=== PATIENT | male | born 1955 | race Caucasian/White ===

== ENCOUNTER 2020-10-28 01:23 | Day surgery (SDC) | payer OTHER, SELFPAY ==
[2020-10-14 14:39] VITALS: BMI 33.0
[2020-10-28 06:19] VITALS: BP 154/80; PULSE 60; RESP 18; TEMP 36.5; O2SAT 99
[2020-10-28] MEDS: LACTATED RINGERS 1,000 ML 150 ML IV CONT (06:28)
--- NOTE | 2020-10-28 06:48 | WPDANESEPPF ---
Anes - Initial Pre Proc Eval Procedure: Operation Date: 10/28/20 07:30 Proposed Procedures p Screening Colonoscopy - John Tillman MD Date/Time: 10/28/20 06:48 Surgeon: John Tillman MD Pre Op Diagnosis: neoplasm screening Patient Data Age: 65 Gender: M Height: 1.78 m Weight: 105.5 kg Last Vital Signs Temp 36.5 C 10/28/20 06:19 Pulse 60 10/28/20 06:19 Resp 18 10/28/20 06:19 BP 154/80 H 10/28/20 06:19 Pulse Ox 99 10/28/20 06:19 Allergies Allergy/AdvReac Type Severity Reaction Status Date / Time No Known Allergies Allergy Verified 10/28/20 06:16 Home Medications Medication Instructions Recorded Confirmed Type clotrimazole-betamethasone 1 1 applic TOPICAL BID 02/26/19 10/14/20 History %-0.05 % topical cream fluticasone propionate 50 2 spray NASAL DAILY 02/26/19 10/14/20 History mcg/actuation nasal spray,suspension lactobacillus combination no.9 4 4,000 mmu cells PO DAILY 02/26/19 10/14/20 History billion cell capsule multivitamin 1 tablet PO DAILY 02/26/19 10/14/20 History psyllium husk 0.4 gram capsule 0.4 gm PO DAILY 02/26/19 10/12/20 History triamcinolone acetonide 0.5 % 1 applic TOPICAL BID #15 gm 02/27/19 10/14/20 Rx topical cream hydrocortisone 2.5 % topical cream 1 applic RECTAL BID PRN #30 gm 04/22/19 10/14/20 Rx with perineal applicator zolpidem 5 mg tablet 5 mg PO .hs PRN #30 tablet 04/22/19 10/14/20 Rx duloxetine 20 mg capsule,delayed 20 mg PO DAILY cap 01/20/20 10/14/20 History release prednisone 10 mg tablet See Rx Instructions PO DAILY #45 01/20/20 10/14/20 Rx tablet rivaroxaban 20 mg tablet 20 mg PO QPM #30 tablet 09/12/20 10/28/20 Rx Patient hx anesthesia problems: none Family hx anesthesia problems: none PMFSH Past Medical History Medical History Essential (primary) hypertension Hx of deep venous thrombosis Obesity (BMI 30-39.9) Other hyperlipidemia Family History Family History Father Family history of lung cancer Family history of congestive heart failure Patient's father is Mother Family history of diabetes mellitus in first degree relative Diabetes mellitus Family history of cardiovascular disease Family history of Alzheimer's disease Sibling Family history of diabetes mellitus in first degree relative Family history of atrial fibrillation Other Family history of arthritis Family history of malignant neoplasm Hypertension Social History Social History Smoking status: Never smoker Second hand tobacco smoke exposure: No Alcohol intake: current Substance use type: does not use Living arrangements: with family Gender identity (if verbalized by the patient): Male Anes - Eval Final PreProcedure Day of Procedure 10/28/20 06:48 Patient weight: obese Heart: regular rate and rhythm Lungs: clear to auscultation Airway: Mallampati scale class II Neurological: alert and oriented Last oral intake: >/= 8 hours ASA classification: III Emergent: no Anesthetic plan: proceed Anesthesia type and monitoring: general GIVS and standard monitoring Informed Consent: The patient's anesthetic plan and its attendant risks and benefits were discussed with the patient/family/POA. Questions were solicited and answers provided to the satisfaction of the patient/family/POA.
--- NOTE | 2020-10-28 07:15 | PM.HPGS ---
History of Present Illness History of Present Illness Consent: Risks, benefits, and alternatives have been discussed and questions answered. Patient agrees to proceed with procedure. Chief complaint: neoplasm screening Narrative: Dennis Maciel is a 65 year old male Referred for colon cancer screening. His last colonoscopy was 10 years ago Review of Systems Review of Systems: All systems reviewed & are unremarkable except as noted in HPI and below PMFSH Past Medical History Medical History Essential (primary) hypertension Hx of deep venous thrombosis Obesity (BMI 30-39.9) Other hyperlipidemia Family History Family History Father Family history of lung cancer Family history of congestive heart failure Patient's father is Mother Family history of diabetes mellitus in first degree relative Diabetes mellitus Family history of cardiovascular disease Family history of Alzheimer's disease Sibling Family history of diabetes mellitus in first degree relative Family history of atrial fibrillation Other Family history of arthritis Family history of malignant neoplasm Hypertension Social History Social History Smoking status: Never smoker Second hand tobacco smoke exposure: No Alcohol intake: current Substance use type: does not use Living arrangements: with family Gender identity (if verbalized by the patient): Male Meds Home Medications and Allergies Home Medications Medication Instructions Recorded Confirmed Type clotrimazole-betamethasone 1 1 applic TOPICAL BID 02/26/19 10/14/20 History %-0.05 % topical cream fluticasone propionate 50 2 spray NASAL DAILY 02/26/19 10/14/20 History mcg/actuation nasal spray,suspension lactobacillus combination no.9 4 4,000 mmu cells PO DAILY 02/26/19 10/14/20 History billion cell capsule multivitamin 1 tablet PO DAILY 02/26/19 10/14/20 History psyllium husk 0.4 gram capsule 0.4 gm PO DAILY 02/26/19 10/12/20 History triamcinolone acetonide 0.5 % 1 applic TOPICAL BID #15 gm 02/27/19 10/14/20 Rx topical cream hydrocortisone 2.5 % topical cream 1 applic RECTAL BID PRN #30 gm 04/22/19 10/14/20 Rx with perineal applicator zolpidem 5 mg tablet 5 mg PO .hs PRN #30 tablet 04/22/19 10/14/20 Rx duloxetine 20 mg capsule,delayed 20 mg PO DAILY cap 01/20/20 10/14/20 History release prednisone 10 mg tablet See Rx Instructions PO DAILY #45 01/20/20 10/14/20 Rx tablet rivaroxaban 20 mg tablet 20 mg PO QPM #30 tablet 09/12/20 10/28/20 Rx Allergies Allergy/AdvReac Type Severity Reaction Status Date / Time No Known Allergies Allergy Verified 10/28/20 06:16 Vital Signs Vital Signs - 24 hr 10/28/20 06:19 Temperature 36.5 C Pulse Rate 60 Respiratory Rate 18 Blood Pressure 154/80 H Pulse Oximetry 99 Exam Resp: Auscultation: clear to auscultation bilaterally Cardio: Rate: regular rate Rhythm: regular rhythm GI: GI Palp: Yes Soft to palpation and No Tenderness to palpation present (GI) Assessment and Plan Assessment and plan (1) Colon cancer screening: Code(s): Z12.11 - Encounter for screening for malignant neoplasm of colon Status: Acute Assessment and Plan: Colonoscopy with possible biopsy or polypectomy or cautery or injection of substances.
[2020-10-28 07:48] VITALS: BP 127/73; PULSE 80; RESP 19; O2SAT 99
[2020-10-28 07:58] VITALS: BP 127/62; PULSE 62; RESP 24; O2SAT 99
[2020-10-28 08:08] VITALS: BP 129/65; PULSE 56; RESP 22; O2SAT 100
== END 2020-10-28 08:23 | disposition home or self-care (01) ==
PROVIDERS: PCP Internal Medicine; Visit Provider Internal Medicine Gastroenterology
PROC: 0DJD8ZZ Inspection of Lower Intestinal Tract, Via Natural or Artificial Opening Endoscopic (ICD-10-PCS; CPT 45378; principal; 2020-10-28 07:30)
DX: Z12.11 Encounter for screening for malignant neoplasm of colon (principal); K57.30 Diverticulosis of large intestine without perforation or abscess without bleeding; I10 Essential (primary) hypertension; E78.5 Hyperlipidemia, unspecified; Z86.718 Personal history of other venous thrombosis and embolism; Z79.01 Long term (current) use of anticoagulants; E66.9 Obesity, unspecified; Z68.33 Body mass index [BMI] 33.0-33.9, adult
CPT/HCPCS: 45378; J2001; J2704; J7120

== ENCOUNTER 2022-01-18 09:58 | Emergency (ER) | payer OTHER, SELFPAY ==
--- NOTE | ~2022-01-18 | CT_ITS ---
EXAMINATION: CT abdomen pelvis w con INDICATION: Epigastric pain and nausea TECHNIQUE: Computed tomographic images of the abdomen and pelvis were obtained after the administrati on of 100 cc of Omnipaque 350 intravenous contrast. The dose-length product (DLP) was 1398.03 mGy-cm. Automated exposure control and iterative reconstruction technique were employed. COMPARISON: None available FINDINGS: Minimal dependent atelectasis is present in the lung bases. The heart size is normal. The l iver, spleen, pancreas, gallbladder, and adrenal glands are normal. The kidneys are unremarkable. No pathologically enlarged abdominal or pelvic lymph nodes are identified. There is no free intraperiton eal gas or evidence of bowel obstruction. The appendix is normal. Colonic diverticulosis is present w ithout evidence of diverticulitis. There is a diverticulum of the right posterolateral bladder wall. There is moderate lumbar spondylosis. There is moderate osteoarthritis of the right hip. IMPRESSION: 1. No CT correlate for the patient's symptoms. Reviewed, dictated and finalized at location A.
[2022-01-18 10:19] VITALS: BP 153/80; PULSE 83; RESP 20; TEMP 36.8; O2SAT 96
--- NOTE | 2022-01-18 10:26 | ECG_ITS ---
Measurements Intervals [place] Rate: 73 P: 50 MN: 150 QRS: -1 QRSD: 89 T: 55 QT: 363 QTc: 402 Interpretive Statements SINUS RHYTHM MINIMAL VOLTAGE CRITERIA FOR LVH, CONSIDER NORMAL VARIANT [MEETS CRITERIA IN ONE OF: R(aVL), S(V1), R(V5), R(V5/V6)+S(V1)] BASELINE ARTIFACT IS PRESENT NO PREVIOUS ECG AVAILABLE FOR COMPARISON Electronically Signed On 01-18-2022 15:25:42 CDT by Marlena Walton M.D.
--- NOTE | 2022-01-18 10:43 | ED.ABDPAIN ---
HPI - Abdominal Pain General Chief Complaint: Abdominal Pain Stated Complaint: abd pain, vomiting Time Seen by Provider: 01/18/22 10:14 Source: patient and family Mode of arrival: ambulatory Limitations: no limitations History of Present Illness HPI narrative: Patient presents complaints of epigastric pain with belching and overall dyspepsia. States symptoms started 2 to 3 days ago and have not resolved with Pepto-Bismol or Gas-X. Patient denies fever but has had persistent nausea with 1 episode of vomiting. Reports after taking Pepto-Bismol stools turned black later in the evening. States pain is more of an ache and is only a 2 or 3 out of 10 but has not resolved. Denies other problems or complaints at this time. Related Data Home Medications Medication Instructions Recorded Confirmed fluticasone propionate 50 2 spray intranasal DAILY 02/26/19 11/02/21 mcg/actuation nasal spray,suspension (Flonase Allergy Relief) lactobacillus combination no.9 4 4,000 mmu cells PO DAILY 02/26/19 11/02/21 billion cell capsule (Adult 50 Plus Probiotic) psyllium husk 0.4 gram capsule 0.4 gm PO DAILY 02/26/19 11/02/21 (Fiber (psyllium husk)) duloxetine 20 mg capsule,delayed 20 mg PO DAILY 01/20/20 11/02/21 release (Cymbalta) loratadine 10 mg tablet (Claritin) 10 mg PO DAILY 01/25/21 11/02/21 Allergies Allergy/AdvReac Type Severity Reaction Status Date / Time No Known Allergies Allergy Verified 11/02/21 11:03 Review of Systems Review of Systems: CONSTITUTIONAL: Denies fever, chills, or sweats. EYES: Denies visual changes, redness, or discharge. ENT: Denies rhinorrhea, congestion, sore throat, or otalgia. CARDIOVASCULAR: Denies chest pain, palpitations, or edema. RESPIRATORY: Denies cough or dyspnea. GASTROINTESTINAL: Epigastric abdominal pain with nausea and one episode vomiting, denies diarrhea. GENITOURINARY: Denies dysuria or hematuria. SKIN: Denies rash or itching. MUSCULOSKELETAL: Denies back pain, joint pain, or myalgia. NEUROLOGIC: Denies headache, numbness, or weakness. PSYCHIATRIC: Denies anxiety or depression. All systems reviewed & are unremarkable except as noted in HPI and below PMFSH Past Medical History Medical History Essential (primary) hypertension Hx of deep venous thrombosis Other hyperlipidemia Family History Family History Father Family history of lung cancer Family history of congestive heart failure Patient's father is Mother Family history of diabetes mellitus in first degree relative Diabetes mellitus Family history of cardiovascular disease Family history of Alzheimer's disease Sibling Family history of diabetes mellitus in first degree relative Family history of atrial fibrillation Other Family history of arthritis Family history of malignant neoplasm Hypertension Social History Social History Smoking status: Never smoker Second hand tobacco smoke exposure: No Alcohol intake: current Substance use type: does not use Gender identity (if verbalized by the patient): Male Exam Narrative: GENERAL: Well-appearing, well-nourished, and in no acute distress. HEAD: Normocephalic, atraumatic. EYES: PERRLA and EOMI. ENT: Nares clear, no rhinorrhea or epistaxis. Mucous membranes moist. NECK: Supple. CHEST: Clear to auscultation. No respiratory distress. HEART: Regular rate and rhythm. No murmur heard. Normal peripheral pulses. ABDOMEN: Soft, mild tenderness to palpation epigastric area, nondistended, normal active bowel sounds. EXTREMITIES: Normal range of motion. No edema. SKIN: Warm, dry, no rash. NEURO: No focal deficits. Alert and oriented x3. PSYCH: Normal mood and affect. Course Vital Signs Vital signs: Vital Signs Temperature 36.8 C 01/18/22 10:19 Pulse Rate 83
[2022-01-18 10:45] LABS: Basophils Percent Auto 0.3 % (0.2-1.2); Eosinophils Absolute Auto 0.1 K/mm3 (0-0.3); Eosinophils Percent Auto 2.1 % (0-4.4); Hematocrit 45.1 % (42.0-52.0); Hemoglobin 14.9 g/dL (14.0-18.0); Immature Granulocyte Absolute 0.03 K/mm3 (0.00-0.031); Immature Granulocyte Percent A 0.4 % (0-0.5); Lymphocytes Absolute Auto 0.67 K/mm3 (0.9-3.2); Lymphocytes Percent Auto 9.9 % (18.3-44.2); Mean Corpuscular Hemoglobin 29.3 pg (26-34); Mean Corpuscular Volume 88.6 fl (80-100); Mean Platelet Volume 10.8 fl (7.4-10.4); Monocytes Absolute Auto 0.6 K/mm3 (0.1-0.6); Monocytes Percent Auto 9.2 % (2.6-8.5); Neutrophils Absolute Auto 5.3 K/mm3 (1.3-6.7); Neutrophils Percent Auto 78.1 % (45.5-73.1); Platelet Count Result 177 k/mm3 (150-375); Red Blood Count 5.09 M/mm3 (4.6-6.20); Red Cell Distribution Width 13.4 % (11.5-14.5); White Blood Count 6.7 K/mm3 (4.5-10.0)
[2022-01-18] MEDS: ONDANSETRON INJ 4 MG/2 ML VIAL IV PUSH (10:49)
[2022-01-18 10:55] LABS: Appearance Urine Clear (Clear); Bilirubin Urine Negative (Negative); Blood Urine Negative (Negative); Color Urine Yellow (Yellow); Glucose Urine UA Negative (Negative); Ketones Urine Negative (Negative); Leukocyte Esterase Ur Negative LEU/UL (Negative); Nitrate Urine Negative (Negative); Protein Urine Negative (Negative); Specific Grav Ur >= 1.030 (1.001-1.035); Urobilinogen Urine 0.2 mg/dL (<2.0); pH Urine 5.5 (5.0-9.0)
[2022-01-18 11:00] LABS: Alanine Aminotransferase 26 U/L (6-50); Albumin Level 4.3 g/dL (3.5-5.1); Alkaline Phosphatase 86 U/L (38-126); Anion Gap 13 mmol/L (8-16); Aspartate Amino Transferase 24 U/L (17-59); Bilirubin,Total 0.6 mg/dL (0.2-1.3); Blood Urea Nitrogen 13 mg/dL (9-20); Calcium 8.8 mg/dL (8.4-10.2); Carbon Dioxide 24 mmol/L (22-30); Chloride 102 mmol/L (98-107); Estimated CRCL calculation 88 ml/min; Estimated Glomerular Filt Rate > 60; Glucose 139 mg/dL (65-110); Lipase 62 U/L (23-300); Sodium 139 mmol/L (137-145)
[2022-01-18 11:12] LABS: Troponin I < 0.012 ng/mL (0.000-0.034)
[2022-01-18 11:21] LABS: Mucus Urine Rare /lpf
[2022-01-18 11:29] LABS: Add Urine Microscopic? NO
[2022-01-18 12:42] VITALS: BP 140/79; PULSE 73; RESP 16; O2SAT 97
== END 2022-01-18 12:43 | disposition home or self-care (01) ==
PROVIDERS: General Practice; Emergency Provider Nurse Practitioner; PCP Internal Medicine
DX: K21.9 Gastro-esophageal reflux disease without esophagitis (principal); I10 Essential (primary) hypertension; Z86.718 Personal history of other venous thrombosis and embolism; E78.49 Other hyperlipidemia
CPT/HCPCS: 36415; 74177; 80053; 81003; 83690; 84484; 85025; 86850; 86900; 86901; 93005; 96374; 99284; J2405; Q9967

== ENCOUNTER 2022-06-26 08:22 | Outpatient (CLI) | payer MEDICARE, SELFPAY ==
--- NOTE | ~2022-06-26 | XR_ITS ---
EXAMINATION: XR lg joint inject/asp w image DATE: 06/26/2022 09:23 INDICATION: Right hip arthritis with pain TECHNIQUE: A time-out was performed to verify the patient's name, date of , and procedure to b e performed. The procedure including the risks, benefits, and alternatives was discussed with the pat ient. Risks discussed included bleeding and infection. The patient understood the risks and agreed to proceed. The skin overlying the right hip joint was prepped and draped in usual sterile fashion. A nesthetic was administered with 1% lidocaine subcutaneously. A 22 G needle was advanced under fluoro scopic guidance into the joint. Injection of 1 mL of Omnipaque 240 confirmed intra-articular positio n of the needle. Subsequently, injectate consisting of 3 mL of a 2:1 mixture of 0.5% Marcaine: 80 mg /mL Depo-Medrol for a total dosage of 80 mg Depo-Medrol was instilled. Washout of contrast was seen c onfirming intra-articular administration. The needle was removed and the entry site was cleaned and d ressed. There were no immediate complications. Fluoroscopy exposure time was 0.1 minutes. The total number of images was 2. FINDINGS: Real-time fluoroscopy demonstrates the needle in the right hip joint. Patient's pain prior to procedure:2/10. Patient's pain following the procedure: 0/10. IMPRESSION: 1. Successful right hip joint injection of local anesthetic and steroid with decrease in the patient' s presenting pain. Reviewed, dictated and finalized at location A. IMPRESSION: 1. Successful right hip joint injection of local anesthetic and steroid with de crease in the patient's presenting pain.
== END 2022-06-26 08:23 | disposition home or self-care (01) ==
PROVIDERS: PCP Internal Medicine; Visit Provider Orthopaedic Surgery
DX: M16.11 Unilateral primary osteoarthritis, right hip (principal)
CPT/HCPCS: 20610; 77002; J1040; Q9966

== ENCOUNTER 2022-11-02 12:59 | Outpatient (CLI) | payer MEDICARE, SELFPAY ==
--- NOTE | ~2022-11-02 | XR_ITS ---
EXAMINATION: XR lg joint inject/asp w image DATE: 11/02/2022 14:05 INDICATION: Right hip arthritis with pain TECHNIQUE: A time-out was performed to verify the patient's name, date of , and procedure to b e performed. The procedure including the risks, benefits, and alternatives was discussed with the pat ient. Risks discussed included bleeding and infection. The patient understood the risks and agreed to proceed. The skin overlying the right hip joint was prepped and draped in usual sterile fashion. A nesthetic was administered with 1% lidocaine subcutaneously. A 22 G needle was advanced under fluoro scopic guidance into the joint. Injection of 1 mL of Omnipaque 240 confirmed intra-articular positio n of the needle. Subsequently, injectate consisting of 3 mL of a 2:1 mixture of 0.5% Marcaine: 80 mg /mL Depo-Medrol for a total dosage of 80 mg Depo-Medrol was instilled. Washout of contrast was seen c onfirming intra-articular administration. The needle was removed and the entry site was cleaned and d ressed. There were no immediate complications. Fluoroscopy exposure time was 0.1 minutes. The total number of images was 2. FINDINGS: Real-time fluoroscopy demonstrates the needle in the right hip joint. Patient's pain prior to procedure:4/10. Patient's pain following the procedure: 0/10. IMPRESSION: 1. Successful right hip joint injection of local anesthetic and steroid with decrease in the patient' s presenting pain. Reviewed, dictated and finalized at location A. IMPRESSION: 1. Successful right hip joint injection of local anesthetic and steroid with de crease in the patient's presenting pain.
== END 2022-11-02 13:00 | disposition home or self-care (01) ==
LOC: ANHIMG 13:05
PROVIDERS: PCP Internal Medicine; Visit Provider Orthopaedic Surgery
DX: M16.11 Unilateral primary osteoarthritis, right hip (principal)
CPT/HCPCS: 20610; 77002; J1040; Q9966

== ENCOUNTER 2023-01-22 15:14 | Outpatient (CLI) | payer MEDICARE, SELFPAY ==
[2023-01-22 15:36] LABS: Basophils Absolute Auto 0.1 K/mm3 (0.0-0.1); Basophils Percent Auto 1.5 % (0.2-1.2); Eosinophils Absolute Auto 0.3 K/mm3 (0-0.3); Eosinophils Percent Auto 4.5 % (0-4.4); Hematocrit 42.3 % (42.0-52.0); Hemoglobin 14.1 g/dL (14.0-18.0); Immature Granulocyte Absolute 0.04 K/mm3 (0.00-0.031); Immature Granulocyte Percent A 0.6 % (0-0.5); Lymphocytes Absolute Auto 1.59 K/mm3 (0.9-3.2); Lymphocytes Percent Auto 22.2 % (18.3-44.2); Mean Corpuscular HGB Conc 33.3 g/dl (32-36); Mean Corpuscular Hemoglobin 29.4 pg (26-34); Mean Corpuscular Volume 88.3 fl (80-100); Mean Platelet Volume 10.7 fl (7.4-10.4); Monocytes Absolute Auto 0.7 K/mm3 (0.1-0.6); Monocytes Percent Auto 9.8 % (2.6-8.5); Neutrophils Absolute Auto 4.4 K/mm3 (1.3-6.7); Neutrophils Percent Auto 61.4 % (45.5-73.1); Platelet Count Result 200 k/mm3 (150-375); Red Blood Count 4.79 M/mm3 (4.6-6.20); Red Cell Distribution Width 13.2 % (11.5-14.5); White Blood Count 7.2 K/mm3 (4.5-10.0)
[2023-01-22 15:42] LABS: Anion Gap 4 mmol/L (8-16); Blood Urea Nitrogen 16 mg/dL (9-20); Calcium 8.7 mg/dL (8.4-10.2); Carbon Dioxide 28 mmol/L (22-30); Chloride 104 mmol/L (98-107); Estimated Glomerular Filt Rate > 60; Glucose 99 mg/dL (65-110); Potassium 4.4 mmol/L (3.4-5.0); Sodium 136 mmol/L (137-145)
--- NOTE | 2023-01-22 15:45 | ECG_ITS ---
Measurements Intervals [place] Rate: 68 P: 62 AL: 151 QRS: -4 QRSD: 96 T: 45 QT: 393 QTc: 420 Interpretive Statements SINUS RHYTHM WITH OCCASIONAL SUPRAVENTRICULAR PREMATURE COMPLEXES BORDERLINE ECG COMPARED TO ECG 01/18/2022 10:52:01 NO SIGNIFICANT CHANGES Electronically Signed On 01-22-2023 17:28:54 CDT by Jaime Cornelius M.D.
[2023-01-22 16:15] LABS: Appearance Urine Clear (Clear); Bacteria Urine None Seen /hpf; Bilirubin Urine Negative (Negative); Blood Urine Negative (Negative); Color Urine Yellow (Yellow); Glucose Urine UA Negative (Negative); Ketones Urine Negative (Negative); Leukocyte Esterase Ur Trace LEU/UL (Negative); Nitrate Urine Negative (Negative); Non Pathogenic Casts 0-2; Protein Urine Negative (Negative); RBC Urine 0-2 /hpf (0-2); Squamous Epithelial Cell Urine None seen /hpf (Few); Urobilinogen Urine 0.2 mg/dL (<2.0); WBC Urine 0-5 /hpf
[2023-01-22 16:53] LABS: Add Urine Microscopic? YES
== END 2023-01-22 15:15 | disposition home or self-care (01) ==
PROVIDERS: PCP Internal Medicine; Visit Provider Orthopaedic Surgery
DX: M16.11 Unilateral primary osteoarthritis, right hip (principal); R53.83 Other fatigue; I10 Essential (primary) hypertension; R93.1 Abnormal findings on diagnostic imaging of heart and coronary circulation
CPT/HCPCS: 36415; 80048; 81001; 85025; 93005

== ENCOUNTER 2023-02-20 10:06 | Outpatient (CLI) | payer MEDICARE, SELFPAY ==
[2023-02-20 11:54] LABS: Appearance Urine Clear (Clear); Bilirubin Urine Negative (Negative); Blood Urine Negative (Negative); Color Urine Yellow (Yellow); Glucose Urine UA Negative (Negative); Ketones Urine Negative (Negative); Leukocyte Esterase Ur Negative LEU/UL (Negative); Nitrate Urine Negative (Negative); Protein Urine Negative (Negative); Specific Grav Ur 1.018 (1.001-1.035); Urobilinogen Urine 0.2 mg/dL (<2.0); pH Urine 5.5 (5.0-9.0)
[2023-02-20 12:00] LABS: Add Urine Microscopic? NO
[2023-02-20 12:01] LABS: Albumin Level 4.5 g/dL (3.5-5.1)
[2023-02-20 12:03] LABS: Hemoglobin A1C 5.7 % (<5.7)
[2023-02-20 12:07] LABS: INR 2.1
[2023-02-20 12:08] LABS: Partial Thromboplastin Time 52.9 SECONDS (22.3-36.8)
[2023-02-20 12:09] LABS: Urine Cotinine NEGATIVE
== END 2023-02-20 10:07 | disposition home or self-care (01) ==
LOC: ANHSURGERY 10:10
PROVIDERS: PCP Internal Medicine; Visit Provider Orthopaedic Surgery
DX: Z01.818 Encounter for other preprocedural examination (principal); M16.11 Unilateral primary osteoarthritis, right hip
CPT/HCPCS: 80307; 81003; 82040; 83036; 85610; 85730; 87081

== ENCOUNTER 2023-03-06 02:13 | Day surgery (SDC) | payer MEDICARE, SELFPAY ==
[2023-02-20 10:17] VITALS: BMI 35.7
--- NOTE | 2023-02-20 10:49 | PC.NURSE ---
Report to the Outpatient Waiting Room, entrance under the green pavilion located off [facility], at time __0600 on date __03/06/23 . Planned Procedure Time: __30 . Time changes happen often and if your time is changed the preop area will call you the afternoon before. - You and your visitor will be asked to self-screen and do not enter if you have any COVID symptoms. - A mask is optional within the hospital at this time. Patients may have clear liquids (water, carbonated beverages, clear teas, apple juice) until 3 hours prior to surgery with a maximum of 20 ounces. - No food from midnight until time of surgery - Infants may have breast milk until 4 hours before surgery, formula 6 hours prior to surgery. - Children will be allowed to drink immediately following surgery. If applicable, please bring a bottle or sippy cup to assist with drinking. Juice, water, soda, and popsicles are readily available. For infants on formula, please bring formula the day of surgery. Pacifiers are allowed. Take the following medications with a SIP of water the morning of surgery: ____DULOXETINE,SYMBICORT IF NEEDED DO NOT STOP ANY OF YOUR OTHER PRESCRIPTION MEDICATIONS PRIOR TO SURGERY ?EXCEPT THE FOLLOWING Medications to discontinue per physician _PT STATES HOLD XARELTO 7 DAYS PRE OP PER DR SANDRA . LAST DOSE 02/26/23 HOLD PROBIOTIC 3 DAYS PRE OP .LAST DOSE 03/02/23 Please no make-up, nail swedish, hairspray, perfume, deodorant, or body powder the day of surgery. No jewelry (including any body piercings) or valuables the day of surgery, leave them at home. Please take a shower or bath the night before, or the morning of, surgery with an antibacterial soap. Wear comfortable, loose fitting clothing. Children are encouraged to wear pajamas. - Jewelry must be removed prior to entering the operating room. Rings and piercings that are not removed may be cut off. - The hospital will not accept responsibility for valuables. - Please leave all valuables, including medications, at home the day of surgery. If you are going home after surgery, a licensed school bus driver must drive you home. - NO public transportation without another adult if you receive anesthesia. - We recommend that an adult stay with you for 24 hours following discharge. - We also recommend that you do not drive, make important decision, drink alcoholic beverages, or take any drugs that were not prescribed by your health care provider for at least 24 hours after your discharge time. For Pediatric surgeries, we recommend two adults accompany the child home. Follow any additional instructions given to you from your surgeon. If you or anyone in your household have experienced Covid symptoms in the past week, please notify your surgeon or the nurse liaison at the phone number below for possible testing. VERBAL AND WRITTEN instructions given to __PATIENT and asked if any additional questions and then verbalized understanding. Patient advised to call surgeon office or pre surgery nurse liaison [phone] if any additional questions.
[2023-02-20 11:07] VITALS: BP 162/88; PULSE 72; RESP 18; TEMP 36.9; O2SAT 98
--- NOTE | 2023-03-05 14:58 | WPDANESEPPF ---
Anes - Initial Pre Proc Eval Procedure: Operation Date: 03/06/23 07:30 Proposed Procedures p Right Total Hip Arthroplasty - Isiah Aguillon MD Date/Time: 03/05/23 14:58 Surgeon: Isiah Aguillon MD Pre Op Diagnosis: right hip djd Patient Data Age: 68 Gender: M Height: 1.78 m Weight: 113 kg Last Vital Signs Temp 36.9 C 02/20/23 11:07 Pulse 72 02/20/23 11:07 Resp 18 02/20/23 11:07 BP 162/88 H 02/20/23 11:07 Pulse Ox 98 02/20/23 11:07 O2 Del Method Room Air 02/20/23 11:07 Allergies Allergy/AdvReac Type Severity Reaction Status Date / Time magnesium AdvReac Gastrointestinal Verified 02/26/23 14:02 Upset Home Medications Medication Instructions Recorded Confirmed Type fluticasone propionate 50 2 spray intranasal PRN PRN Allergy 02/26/19 02/20/23 History mcg/actuation nasal Symptoms spray,suspension (Flonase Allergy Relief) lactobacillus combination no.9 4 4,000 mmu cells PO DAILY 02/26/19 02/20/23 History billion cell capsule (Adult 50 Plus Probiotic) psyllium husk 0.4 gram capsule 0.4 gm PO DAILY 02/26/19 02/20/23 History (Fiber (psyllium husk)) loratadine 10 mg tablet (Claritin) 10 mg PO DAILY 01/25/21 02/20/23 History acetaminophen [Tylenol Arthritis 2 tab-cap PO PRN PRN Pain 06/16/22 02/20/23 History Pain] calcium carbonate [Tums] 1 tab-cap PO PRN PRN Heartburn 06/16/22 02/20/23 History rivaroxaban 20 mg tablet (Xarelto) 20 mg PO QPM #30 tabs 10/23/22 02/20/23 Rx dexlansoprazole 60 mg 60 mg PO DAILY #90 caps 11/12/22 02/20/23 Rx capsule,biphase delayed release (Dexilant) duloxetine 30 mg capsule,delayed 30 mg PO DAILY #90 caps 11/22/22 02/20/23 Rx release azelastine 205.5 mcg (0.15 %) 2 spray intranasal PRN PRN Allergy 02/20/23 02/20/23 History nasal spray Symptoms budesonide-formoterol HFA 80 2 puff inhalation PRN PRN 02/20/23 02/20/23 History mcg-4.5 mcg/actuation aerosol Shortness Of Breath inhaler (Symbicort) chlorhexidine gluconate 4 % 1 applic topical ONCE #237 mL 02/23/23 Rx topical liquid (Hibiclens) Patient hx anesthesia problems: none Family hx anesthesia problems: none Results Review: All pre-operative results and documents have been reviewed as part of the pre-operative evaluation. [facility] Past Medical History Medical History (Updated 02/26/23 @ 15:37 by SIRIA Newberry) Anxiety Arthritis Degenerative joint disease of right hip Essential (primary) hypertension GERD (gastroesophageal reflux disease) Hx of deep venous thrombosis Hypertension Other fatigue Other hyperlipidemia Wears glasses Surgical History Surgical History History of bunionectomy History of tonsillectomy History of tympanoplasty of left ear Family History Family History Father Family history of lung cancer Family history of congestive heart failure Patient's father is Mother Family history of diabetes mellitus in first degree relative Diabetes mellitus Family history of cardiovascular disease Family history of Alzheimer's disease Sibling Family history of diabetes mellitus in first degree relative Family history of atrial fibrillation Other Family history of arthritis Family history of malignant neoplasm Hypertension Social History Social History Smoking status: Never smoker Second hand tobacco smoke exposure: No Additional smoking assessment comments: DENIES ANY FORM OF TOBACCO USE Alcohol intake: current Drinks per week: 3 Substance use type: does not use Lack of Transportation: No Lack of Food: Never True Current Housing: I Have Housing Concerned About Future Housing: No Difficulty Paying Gas/Electric Bills: No Difficulty Paying for Meds: No Currently Unemployed: No Education: Bachelor's Degree Difficulty w/
[2023-03-06] VITALS (16 sets, daily range): BP systolic 118–167; BP diastolic 72–90; PULSE 70–98; RESP 10–18; TEMP 36.2–36.9; O2SAT 94–100
--- NOTE | ~2023-03-06 | XR_ITS ---
EXAMINATION: XR hip RT min 2V DATE: 03/06/2023 11:02 INDICATION: Right total hip arthroplasty TECHNIQUE: 2 views right hip FINDINGS: There is a right total hip arthroplasty in expected position. Subcutaneous gas with soft t issue swelling are consistent with recent surgery. IMPRESSION: 1. Recent right total hip arthroplasty. Reviewed, dictated and finalized at location L. [facility] E[employer] PROFESSOR
[2023-03-06] MEDS: TRANEXAMIC ACID 1,000MG/ISO100 1,000 MG/100 ML BAG 200 MG IVPB (06:40)
[2023-03-06] MEDS: LACTATED RINGERS 1,000 ML 30 ML IV CONT ×2 (06:40→10:38)
[2023-03-06] MEDS: ACETAMINOPHEN 500 MG TABLET 1000 MG PO (06:48)
--- NOTE | 2023-03-06 07:53 | WPDHPUPDATE1 ---
History and Physical Update Update Date/Time: 03/06/23 07:53 History and Physical has been reviewed, including an updated exam of the patient. There are NO changes in the patient's condition. Risks, benefits, and alternatives have been discussed and questions answered. Patient agrees to proceed with procedure.
[2023-03-06] MEDS: ceFAZolin 2 GM/D5W 50 ML 2 GM/50 ML BAG IVPB ×3 (08:00→23:17)
[2023-03-06] MEDS: TRANEXAMIC ACID 1,000 MG/10 ML AMPUL 1000 MG IV PUSH (09:40)
--- NOTE | 2023-03-06 10:20 | W.PM.PROC2 ---
Procedure Note - Detailed Date of Procedure 03/06/23 Pre-op Diagnosis right hip djd Post-op Diagnosis Same Procedure Performed R REED Surgeon Isiah Aguillon MD Anesthesia General Description of Procedure THE PATIENT WAS TAKEN TO THE OPERATING ROOM IN STABLE CONDITION AND WAS PLACED IN THE LATERAL DECUBITUS AND THE RIGHT LOWER EXTREMITY WAS PREPPED AND DRAPED IN THE STERILE FASHION. INCISION WAS MADE IN THE POSTERIOR LATERAL SIDE OF THE HIP, DOWN TO THE FASCIA LAYER. THE FASCIA WAS INCISED. THE HIP WAS EXPOSED. THE SHORT EXTERNAL ROTATORS WERE EXPOSED. THE SCIATIC NERVE WAS IDENTIFIED. THERE WAS A HIGH BIFURCATION OF THE NERVE. INCISION WAS MADE THROUGH THE SORT EXTERNAL ROTATORS AND THE CAPSULE OF THE HIP JOINT. THE HIP WAS DISLOCATED. AN OSTEOTOMY WAS MADE TO THE FEMORAL NECK ABOUT 1 CM PROXIMAL TO THE LESSER TROCHANTER. THE ACETABULUM WAS EXPOSED. THERE WAS SEVERE DJD SEEN. BEGINNING WITH A 44 REAMER THE ACETABULUM WAS REAMED TO 53 MM. A 53 MM TRIAL WAS PLACED IN 35 DEG OF ABDUCTION AND ANTEVERSION WAS IN ALIGNMENT WITH THE TRANS ACETABULAR LIGAMENT. THE FIT WAS EXCELLENT. THE TRIAL WAS REMOVED. A 54 MM BIOMET G7 COMPONENT WAS THEN TAPPED IN TO PLACE IN 35 DEG OF ABDUCTION AND ANTEVERSION IN ALIGNMENT WITH THE TRANSVERSE ACETABULAR LIGAMENT. THE FIT WAS EXCELLENT. THE ACETABULAR LINER WAS PLACED AND CHECKED FOR STABILITY. NEXT THE FEMUR WAS PREPARED WITH INITIAL CANAL FINDER THEN SEQUENTIAL BROACHING WITH A TAPERLOC HIP SYSTEM, UNTIL A 14 BROACH FIT WELL IN 15 OF ANTEVERSION. A 0 HIGH OFFSET NECK WITH 36 MM HEAD TRIAL WAS PLACED. THE SHUCK TEST WAS EXCELLENT AND THE STABILITY IN FLEXION AND ROTATION WAS EXCELLENT. LEG LENGTHS WERE GROSSLY EQUAL. TRIALS WERE REMOVED. A BIOMET TAPERLOC 14 STEM WAS PLACED WITH A HIGH OFFSET NECK THE FIT WAS EXCELLENT IN 15 DEG OF ANTEVERSION. A 0 CERAMIC 36 MM FEMORAL HEAD WAS PLACED. THE HIP WAS TRIALED AND THE STABILITY WAS EXCELLENT WERE THE LEG LENGTHS AND THE SHUCK TEST. THE WOUND WAS IRRIGATED WITH STERILE BETADINE AND WATER FOR 3 MIN. THEN WASHED AGAIN. THE CAPSULE AND THE EXTERNAL ROTATORS WERE APPROXIMATED WITH NUMBER 1 VICRYL. THE FASCIA WITH No 2 QUIL AND THE SUB CUTANEOUS LAYER WITH 2-0 ABSORBABLE SUTURE WITH A RUNNING 3-0 SUBCUTICULAR LAYER WELL. DERMABOND WAS PLACED AND STERILE DRESSING WAS APPLIED. PATIENT WAS PLACED BACK ON TO THE SUPINE POSITION AND WAS EXTUBATED Estimated Blood Loss 200 Complications No immediate complications Condition Stable Disposition PACU
[2023-03-06] MEDS: fentaNYL CITRATE INJ (*CRX) 100 MCG/2 ML VIAL 25 MCG IV PUSH ×8 (10:58→12:04)
[2023-03-06] MEDS: HYDROmorphone HCL INJ (*CRX) 1 MG/ML SYR 0.5 MG IV PUSH ×2 (12:39→12:48)
[2023-03-06] MEDS: KETOROLAC 15 MG/ML VIAL (*BKC) IV PUSH ×3 (13:58→23:16)
--- NOTE | 2023-03-06 15:44 | PC.NURSE ---
1204 received report from geography head Gina. patient stable. room being cleaned will contact once completed
--- NOTE | 2023-03-06 15:52 | ADMGEN ---
This patient, Dennis Maciel, was admitted to [facility] Surg Room 314-02. Patient/family oriented to hospital policies and general routines including ID bracelet, bed and alarms, visiting hours, pain management, procedures, bathroom and other care routines, personal items, smoking policy, room service/diet, and visiting hours. Information on how to activate the Rapid Response Team has been discussed. Patient/Family are encouraged to report perceived risks to care and to ask questions if they do not understand what they are told or what they should do. post op patient, denies pain, at bedside.
[2023-03-06] MEDS: SENNA/DOCUSATE SODIUM TABLET 2 TAB PO (16:51)
[2023-03-06] MEDS: RIVAROXABAN 20 MG TABLET PO (16:55)
[2023-03-06] MEDS: FAMOTIDINE 20 MG TABLET PO (20:44)
[2023-03-07 00:20] VITALS: BP 141/75; PULSE 84; RESP 16; TEMP 36.9; O2SAT 96
[2023-03-07] MEDS: KETOROLAC 15 MG/ML VIAL (*BKC) IV PUSH ×2 (05:02→11:29)
[2023-03-07 05:24] VITALS: BP 141/73; PULSE 80; RESP 16; TEMP 36.7; O2SAT 95
[2023-03-07 06:29] LABS: Basophils Absolute Auto 0.1 K/mm3 (0.0-0.1); Basophils Percent Auto 0.5 % (0.2-1.2); Eosinophils Absolute Auto 0.1 K/mm3 (0-0.3); Eosinophils Percent Auto 0.6 % (0-4.4); Hematocrit 38.7 % (42.0-52.0); Hemoglobin 12.2 g/dL (14.0-18.0); Immature Granulocyte Absolute 0.04 K/mm3 (0.00-0.031); Immature Granulocyte Percent A 0.4 % (0-0.5); Lymphocytes Absolute Auto 1.38 K/mm3 (0.9-3.2); Lymphocytes Percent Auto 12.8 % (18.3-44.2); Mean Corpuscular HGB Conc 31.5 g/dl (32-36); Mean Corpuscular Hemoglobin 28.6 pg (26-34); Mean Corpuscular Volume 90.8 fl (80-100); Mean Platelet Volume 11.1 fl (7.4-10.4); Monocytes Absolute Auto 1.5 K/mm3 (0.1-0.6); Monocytes Percent Auto 13.6 % (2.6-8.5); Neutrophils Absolute Auto 7.8 K/mm3 (1.3-6.7); Neutrophils Percent Auto 72.1 % (45.5-73.1); Platelet Count Result 193 k/mm3 (150-375); Red Blood Count 4.26 M/mm3 (4.6-6.20); Red Cell Distribution Width 13.6 % (11.5-14.5); White Blood Count 10.8 K/mm3 (4.5-10.0)
[2023-03-07 06:55] LABS: Anion Gap 8 mmol/L (8-16); Blood Urea Nitrogen 25 mg/dL (9-20); Calcium 8.3 mg/dL (8.4-10.2); Carbon Dioxide 25 mmol/L (22-30); Chloride 101 mmol/L (98-107); Estimated CRCL calculation 99 ml/min; Estimated Glomerular Filt Rate > 60; Glucose 122 mg/dL (65-110); Potassium 4.5 mmol/L (3.4-5.0); Sodium 134 mmol/L (137-145)
[2023-03-07 08:00] VITALS: BP 139/63; PULSE 83; RESP 18; TEMP 36.3; O2SAT 99
[2023-03-07] MEDS: SENNA/DOCUSATE SODIUM TABLET 2 TAB PO (08:17)
[2023-03-07] MEDS: DULoxetine HCL 30 MG CAPSULE.DR PO (08:17)
[2023-03-07] MEDS: polyethylene glycoL 3350 17 GM POWD.PACK PO (08:17)
[2023-03-07] MEDS: PANTOPRAZOLE 40 MG TABLET PO (08:18)
[2023-03-07] MEDS: FAMOTIDINE 20 MG TABLET PO (08:18)
[2023-03-07] MEDS: ceFAZolin 2 GM/D5W 50 ML 2 GM/50 ML BAG IVPB (08:22)
--- NOTE | 2023-03-07 09:01 | WPDANESPN ---
Anes - Prog Note Post-Op Date/Time: 03/07/23 09:01 Cardiovascular status: normal Respiratory status: normal Airway patency: baseline Mental status: baseline Post-Op hydration status: normal Vital Signs: Last Vital Signs Temp 36.3 C L 03/07/23 08:00 Pulse 83 03/07/23 08:00 Resp 18 03/07/23 08:00 BP 139/63 03/07/23 08:00 Pulse Ox 99 03/07/23 08:00 O2 Del Method Room Air 03/06/23 20:44 O2 Flow Rate 8 03/06/23 10:45 Pain Score (VAS): 2 I/O: Intake & Output 03/06/23 03/07/23 03/07/23 23:59 07:59 15:59 Intake Total 220 Balance 220 Laboratory Tests 03/07/23 05:51 03/07/23 05:51 03/07/23 05:51 WBC 10.8 H RBC 4.26 L Hgb 12.2 L Hct 38.7 L MCV 90.8 MCH 28.6 MCHC 31.5 L RDW 13.6 Plt Count 193 MPV 11.1 H Immature Gran % (Auto) 0.4 Neut % (Auto) 72.1 Lymph % (Auto) 12.8 L Morrill % (Auto) 13.6 H Eos % (Auto) 0.6 Baso % (Auto) 0.5 Lymph # (Auto) 1.38 Morrill # (Auto) 1.5 H Eos # (Auto) 0.1 Baso # (Auto) 0.1 Abs Immat Gran (auto) 0.04 H Absolute Neuts (auto) 7.8 H Absolute Nucleated RBC 0.0 Nucleated RBC % 0.0 Sodium 134 L Potassium 4.5 Chloride 101 Carbon Dioxide 25 Anion Gap 8 BUN 25 H Creatinine 0.80 Estim Creat Clear Calc 99 Estimated GFR > 60 Glucose 122 H Calcium 8.3 L Post-procedural complaints: none Patient Feedback: Patient satisfied with anesthetic care.
--- NOTE | 2023-03-07 10:50 | PM.PNORT ---
Progress Note: A&P Assessment and Plan (1) Degenerative joint disease of right hip: Qualifiers: Osteoarthritis type: primary Qualified Code(s): M16.11 - Unilateral primary osteoarthritis, right hip Code(s): M16.11 - Unilateral primary osteoarthritis, right hip Status: Acute Assessment and Plan: POD 1 DOING WELL. OK TO DC HOME AFTER PT. HE WILL F/U IN 3 WEEKS Subjective Subjective Date/Time Seen: 03/07/23 10:50 Interval history: POD 1 DOING WELL. NO CALF PAIN. GOOD PROGRESS WITH PT Exam Extrem: Other: VSS AFEBRILE DRESSING DRY NV INTACT NEG HOMANS SIGN THIGH AND CALF SOFT Objective Data Vital Signs Vital Signs: Vital Signs - 24 hr 03/06/23 11:00 03/06/23 11:15 03/06/23 11:30 Temperature Pulse Rate 84 89 85 Respiratory Rate 12 12 10 L Blood Pressure 134/72 154/79 H 136/78 Pulse Oximetry 100 100 97 Oxygen Delivery Room Air Room Air Room Air 03/06/23 11:45 03/06/23 12:00 03/06/23 12:15 Temperature Pulse Rate 84 88 88 Respiratory Rate 12 12 12 Blood Pressure 131/76 147/84 H 140/72 Pulse Oximetry 97 97 97 Oxygen Delivery Room Air Room Air Room Air 03/06/23 12:30 03/06/23 12:42 03/06/23 15:03 Temperature Pulse Rate 84 86 Respiratory Rate 12 13 Blood Pressure 134/75 139/79 Pulse Oximetry 97 97 Oxygen Delivery Room Air Room Air Room Air 03/06/23 13:12 03/06/23 13:12 03/06/23 13:42 Temperature 36.5 C 36.6 C Pulse Rate 91 89 Respiratory Rate 16 16 Blood Pressure 159/90 H 129/81 Pulse Oximetry 95 96 Oxygen Delivery Room Air 03/06/23 14:42 03/06/23 18:42 03/06/23 21:54 Temperature 36.2 C L 36.6 C 36.8 C Pulse Rate 70 98 80 Respiratory Rate 16 16 16 Blood Pressure 144/74 H 143/85 H 167/83 H Pulse Oximetry 97 95 94 Oxygen Delivery 03/06/23 20:44 03/07/23 00:20 03/07/23 05:24 Temperature 36.9 C 36.7 C Pulse Rate 84 80 Respiratory Rate 16 16 Blood Pressure 141/75 H 141/73 H Pulse Oximetry 96 95 Oxygen Delivery Room Air 03/07/23 08:00 03/07/23 08:00 Temperature 36.3 C L Pulse Rate 83 Respiratory Rate 18 Blood Pressure 139/63 Pulse Oximetry 99 Oxygen Delivery Room Air Intake/Output Intake/Output: Intake & Output 03/04/23 03/05/23 03/06/23 03/07/23 23:59 23:59 23:59 23:59 Intake Total 670 766 Balance 670 766 Meds/Results Medications: Active Medications Generic Name Dose Route Start Last Admin Trade Name Freq PRN Reason Stop Dose Admin Acetaminophen 650 mg 03/06/23 12:57 Acetaminophen 325 Mg Tablet PO Q6H PRN Mild Pain (1-3) or Fever Hydrocodone Bitart/Acetaminophen 1 tab 03/06/23 12:57 Hydrocodone/Acetaminophen (*Crx) 7.5-325 Mg Tablet PO Q3H PRN Pain Rated 4-6 Hydrocodone Bitart/Acetaminophen 2 tab 03/06/23 12:57 Hydrocodone/Acetaminophen (*Crx) 7.5-325 Mg Tablet PO Q6H PRN Pain Rated 7-10 Diazepam 5 mg 03/06/23 12:57 Diazepam (*Crx) 5 Mg Tablet PO Q6H PRN Anxiety/Muscle Spasm Duloxetine HCl 30 mg 03/07/23 09:00 03/07/23 08:17 Duloxetine Hcl 30 Mg Capsule.Dr PO 30 mg DAILY AYLIN Administration Famotidine 20 mg 03/06/23 21:00 03/07/23 08:18 Famotidine 20 Mg Tablet PO 20 mg Q12HR AYLIN Administration Hydroxyzine HCl 50 mg 03/06/23 12:57 Hydroxyzine Hcl 25 Mg Tablet PO Q4H PRN Itching Ketorolac Tromethamine 15 mg 03/06/23 12:57 03/07/23 05:02 Ketorolac 15 Mg/Ml Vial (*Bkc) IV PUSH 03/07/23 12:01 15 mg Q6HR AYLIN Administration Naloxone HCl 0.1 mg 03/06/23 12:57 Naloxone Hcl 0.4 Mg/Ml Vial IV PUSH Q2M PRN Opiate Reversal Ondansetron HCl 4 mg 03/06/23 12:57 Ondansetron Inj 4 Mg/2 Ml Vial IV PUSH Q4H PRN Nausea And Vomiting Pantoprazole Sodium 40 mg 03/07/23 09:00 03/07/23 08:18 Pantoprazole 40 Mg Tablet PO 04/06/23 08:59 40 mg DAILY AYLIN Administration Polyethylene Glycol 17 gm 03/07/23 09:00 03/07/23 08:17 Polyethy
--- NOTE | 2023-03-07 10:52 | PM.DS ---
DS: Admitting Diagnosis Discharge Date 03/07/23 Admitting Diagnosis RIGHT HIP DJD DS: Discharge Diagnosis Discharge Diagnosis (1) Degenerative joint disease of right hip: Qualifiers: Osteoarthritis type: primary Qualified Code(s): M16.11 - Unilateral primary osteoarthritis, right hip Code(s): M16.11 - Unilateral primary osteoarthritis, right hip Status: Acute DS: Summary Hospital Course Reason for hospitalization: R REED Hospital Course: PATIENT WAS ADMITTED S/P TOTAL HIP ARTHROPLASTY FOR POSTOPERATIVE MEDICAL MANAGEMENT, PAIN CONTROL AND MOBILIZATION WITH PHYSICAL AND OCCUPATIONAL THERAPY. THE PATIENT PROGRESSED WELL WITH PT/OT. LABS AND VITALS REMAINED STABLE AND PAIN WELL CONTROLLED. THE PATIENT HAS BEEN CLEARED TO BE DISCHARGED HOME. FOLLOW UP APPOINTMENT SCHEDULED. DISCHARGE INSTRUCTIONS DISCUSSED AT LENGTH WITH THE PATIENT. MEDICATIONS REVIEWED. Status at Discharge Cognitive/behavioral status at discharge: STABLE Time Spent with Patient Time attestation: Total time spent providing and/or coordinating discharge services: DS: Data Data Completed and Pending Labs on day of discharge: Labs from last 24 hours 03/07/23 05:51 WBC 10.8 H RBC 4.26 L Hgb 12.2 L Hct 38.7 L MCV 90.8 MCH 28.6 MCHC 31.5 L RDW 13.6 Plt Count 193 MPV 11.1 H Immature Gran % (Auto) 0.4 Neut % (Auto) 72.1 Lymph % (Auto) 12.8 L Stevens % (Auto) 13.6 H Eos % (Auto) 0.6 Baso % (Auto) 0.5 Lymph # (Auto) 1.38 Stevens # (Auto) 1.5 H Eos # (Auto) 0.1 Baso # (Auto) 0.1 Abs Immat Gran (auto) 0.04 H Absolute Neuts (auto) 7.8 H Absolute Nucleated RBC 0.0 Nucleated RBC % 0.0 Sodium 134 L Potassium 4.5 Chloride 101 Carbon Dioxide 25 Anion Gap 8 BUN 25 H Creatinine 0.80 Estim Creat Clear Calc 99 Estimated GFR > 60 Glucose 122 H Calcium 8.3 L Discharge Plan Discharge Patient Disposition: Home Health Service Discharge Instructions: Post Op Total Hip Replacement Instructions Dr. Isiah Aguillon [phone] Your dressing will be changed prior to your discharge. You will be sent home with one additional dressing to be changed on post op day 7 by the home health RN. You may remove the dressing on post op day 14. Your incision was closed with dermabond, allow the dermabond to fall off naturally once your dressing is removed. Do not pull at the dermabond or disrupt incision healing. You may shower with your dressing but do not submerge in a bath tub. Do not drive or operate machinery until you are released by Dr. Aguillon. Do not walk without a walker for any reason until you are released by Dr. Aguillon. Continue to apply ice to the hip intermittently for additional pain relief. Protect your skin with a towel or pillow case. Continue to follow strict total hip replacement precautions. Your first post op appointment was sent to you via mail preoperatively. If you have any questions or are unable to make your appointment, please contact our office for scheduling questions. Your medications have been sent to your pharmacy. You have been sent home with pain medication. Please brain picker an over the counter stool softener to prevent constipation due to narcotic use. Please keep this in mind during your postoperative recovery. If you are not experiencing regular bowel movements, please contact our office for further instructions. Please contact our office with any questions/concerns regarding your hip at [phone]. Patient Instructions: Antibiotic Form Stand Alone Forms: General Discharge Information Follow-up/Referrals: Isiah Aguillon MD [Physician] - Keep Reg. Scheduled Appt. Discharge Medications: New hydrocodone-acetaminophen 5-325 mg tablet 1 tablet PO Q8H PRN (Reason: pain) Qty: 30 0RF Continued calcium carbonate [Tums] 1 tab-cap PO PRN PRN (Reason: Heartburn) acetaminophen [Tylenol Arthritis Pain] 2 tab-cap PO PRN PRN (Reason: Pain)
== END 2023-03-07 12:12 | disposition home health service (06) ==
LOC: ANHSURGERY 05:54 → ANH3MEDSUR 12:59
PROVIDERS: PCP Internal Medicine; Visit Provider Orthopaedic Surgery
PROC: (CPT 27130; principal; 2023-03-06 07:30)
DX: M16.11 Unilateral primary osteoarthritis, right hip (principal); I10 Essential (primary) hypertension; E78.49 Other hyperlipidemia; K21.9 Gastro-esophageal reflux disease without esophagitis; F41.9 Anxiety disorder, unspecified; Z79.01 Long term (current) use of anticoagulants; Z79.51 Long term (current) use of inhaled steroids; E66.9 Obesity, unspecified; Z68.35 Body mass index [BMI] 35.0-35.9, adult
CPT/HCPCS: 27130; 36415; 73502; 80048; 80307; 81003; 82040; 83036; 85025; 85610; 85730; 86850; 86900; 86901; 87081; 97110; 97116; 97161; 97165; 97530; 97535; A9270; C1713; C1776; J0171; J0360; J0690; J1100; J1170; J1885; J2250; J2270; J2371; J2405; J2704; J2795; J3010; J7120

== ENCOUNTER 2023-12-03 16:16 | Outpatient (CLI) | payer MEDICARE, SELFPAY ==
--- NOTE | ~2023-12-03 | US_ITS ---
EXAMINATION: US venous doppler [facility] DATE: 12/03/2023 17:35 INDICATION: Personal history of venous thrombosis TECHNIQUE: Grayscale ultrasound images without and with compression and Doppler ultrasound images of the left lower extremity veins were obtained. COMPARISON: 08/16/2017 FINDINGS: The visualized portions of left common femoral vein, profunda (deep) femoral vein, femoral vein, popl iteal vein, peroneal veins, posterior tibial veins, gastrocnemius vein and greater saphenous vein out flow are now patent. IMPRESSION: 1. No deep venous thrombosis in the left lower limb. Reviewed, dictated and finalized at location A.
== END 2023-12-03 16:17 | disposition home or self-care (01) ==
LOC: ANHIMG 16:22
PROVIDERS: PCP Internal Medicine; Visit Provider Internal Medicine
DX: Z86.718 Personal history of other venous thrombosis and embolism (principal)
CPT/HCPCS: 93971

== ENCOUNTER 2025-01-08 08:45 | Day surgery (SDC) | payer MEDICARE, SELFPAY ==
[2024-12-30 10:00] VITALS: BMI 35.1
--- NOTE | 2025-01-08 07:01 | PM.HPGS ---
History of Present Illness History of Present Illness Chief complaint: de Quervains Narrative: Patient seen and examined in pre-operative holding area. No interval change in medical history or symptoms. Patient recalls previous discussion of benefits and alternatives to procedure. Continues to desire to proceed with left first extensor compartment release. Reviewed procedure, post-op expectations and risks including but not limited to bleeding, infection, injury to tendon/nerve/vessel, decreased hand function, stiffness, RSD, no change or worsening of symptoms. I discussed the possible use of assistants and their participation in the case. Patient stated understanding and signed the consent form wishing to proceed. Review of Systems Review of Systems: All systems reviewed & are unremarkable except as noted in HPI and below PMFSH Past Medical History Medical History (Updated 11/17/24 @ 10:55 by Ning Dougherty) Other fatigue Cough Shoulder mass Tinnitus Posterior tibial tendinitis of left lower extremity Palpitations Other rosacea Localized swelling, mass and lump, left upper limb (05/04/16) Left foot pain Irregular heartbeat Internal and external bleeding hemorrhoids Insomnia Hyperglycemia Hemorrhoids Hallux valgus (acquired), left foot Flu-like symptoms Flat foot [pes planus] (acquired), left foot Family history of deep venous thrombosis Epidermal inclusion cyst Encounter for screening for malignant neoplasm of prostate Encounter for general adult medical examination without abnormal findings Encounter for surgical aftercare following surgery on the skin and subcutaneous tissue Dietary counseling and surveillance (03/01/16) BPPV (benign paroxysmal positional vertigo) Body mass index [BMI] 35.0-35.9, adult (11/28/16) Allergic rhinitis, unspecified Acute non-recurrent sinusitis Acute left ankle pain Acute deep vein thrombosis (DVT) of popliteal vein of left lower extremity Acquired leg length discrepancy Pes planovalgus, acquired Arthritis of foot, 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 Other fatigue Degenerative joint disease of right hip Arthritis Anxiety GERD (gastroesophageal reflux disease) Hypertension Wears glasses Essential (primary) hypertension Hx of deep venous thrombosis Other hyperlipidemia Surgical History Surgical History History of tonsillectomy History of tympanoplasty of left ear History of bunionectomy Family History Family History Father Family history of lung cancer Family history of congestive heart failure Patient's father is Mother Family history of diabetes mellitus in first degree relative Diabetes mellitus Family history of cardiovascular disease Family history of Alzheimer's disease Sibling Family history of diabetes mellitus in first degree relative Family history of atrial fibrillation Other Family history of arthritis Family history of malignant neoplasm Hypertension Social History Social History Smoking status: Never smoker Second hand tobacco smoke exposure: No Additional smoking assessment comments: DENIES ANY FORM OF TOBACCO USE Alcohol intake: current Drinks per week: 3 Substance use type: does not use Lack of Transportation: No Lack of Food: Never True Current Housing: I Have Housing Concerned About Future Housing: No Difficulty Paying Gas/Electric Bills: No Difficulty Paying for Meds: No Currently Unemployed: No Education: Bachelor's Degree Difficulty w/ Childcare or Family Care: No Living arrangements: with family Gender identity (if verbalized by the patient): Male Spiritual care concerns: No Meds Home Medications and Allergies Home Medications ?Medication ?Instructions ?Recorded ?Confirmed ?Type fluticasone propionate 50 2 spray intranasal PRN PRN Allergy 02/26/19 01/08/25 History mcg/actuation nasal Symptoms spray,suspension (Flonase Allergy Relief) lactobacillus combination no.9 4 4,000 mmu cells PO DAILY 02/26/19 01/08/25 History billion cell capsule (Adult 50 Plus Probiotic) psyllium husk 0.4 gram capsule 0.4 gm PO DAILY 02/26/19 01/08/25 History (Fiber (psyllium husk)) loratadine 10 mg tablet (Claritin) 10 mg PO DAILY 01/25/21 01/08/25 History acetaminophen [Tylenol Arthritis 2 tab-cap PO PRN PRN Pain 06/16/22 01/08/25 History Pain] calcium carbonate [Tums] 1 tab-cap PO PRN PRN Heartburn 06/16/22 01/08/25 History azelastine 205.5 mcg (0.15 %) 2 spray intranasal PRN PRN Allergy 02/20/23 01/08/25 History nasal spray Symptoms cyclobenzaprine 10 mg tablet 10 mg PO QHS PRN muscle spasm #30 03/14/23 12/30/24 Rx tabs hydrocortisone 2.5 % topical cream 1 applic RECTAL BID PRN 12/12/23 01/08/25 Rx with perineal applicator hemorrhoids #30 grams (Proctozone-HC) budesonide-formoterol HFA 80 2 puff inhalation BID PRN 12/24/23 01/08/25 Rx mcg-4.5 mcg/actuation aerosol Shortness Of Breath #10.2 grams inhaler (Symbicort) dexlansoprazole 60 mg 60 mg PO DAILY #90 caps 02/26/24 01/08/25 Rx capsule,biphase delayed release (Dexilant) Potassium 99 mg PO .QOD 05/12/24 12/30/24 History naproxen sodium 550 mg tablet 550 mg PO Q12H PRN pain #60 tabs 05/21/24 01/08/25 Rx (Anaprox DS) duloxetine 30 mg capsule,delayed 30 mg PO DAILY #90 caps 08/27/24 01/08/25 Rx release nystatin 100,000 unit/gram topical 1 applic topical BID #30 grams 10/09/24 01/08/25 Rx cream aspirin 81 mg tablet,delayed 81 mg PO DAILY 12/30/24 01/08/25 History release (Adult Low Dose Aspirin) Allergies Allergy/AdvReac Type Severity Reaction Status Date / Time Sulfa (Sulfonamide AdvReac Mild Nausea Verified 01/08/25 09:12 Antibiotics) magnesium AdvReac Gastrointestinal Verified 01/08/25 09:12 Upset Exam Narrative: unchanged Assessment and Plan Assessment and plan (1) De Quervain's tenosynovitis, left: Code(s): M65.4 - Radial styloid tenosynovitis [de Quervain] Status: Acute Assessment and Plan: cont as above
--- NOTE | 2025-01-08 07:01 | W.PM.PROC2 ---
Procedure Note - Detailed Date of Procedure 01/08/25 Pre-op Diagnosis left de Quervains Post-op Diagnosis Same Procedure Performed left first extensor compartment release Surgeon Sherman Jordan MD Administrative Support Coordinator Edin Escamilla PA-C Anesthesia MAC Description of Procedure INFORMED CONSENT: The patient was seen and examined and marked in the pre-op area.? The patient signed the consent form. PROCEDURE IN DETAIL:The patient taken back to OR on the stretcher in supine position. Time out performed with anesthesia, surgeon and staff agreeing on patient's name site and surgery to be performed SCDs were placed on the lower extremities and inflated. A tourniquet was placed on {left} upper extremity and antibiotics given IV After anesthesia administered sedation I injected {5}cc 1%lido with epi and 0.5% marcaine plain at the operative site The?{left upper extremity}?was prepped and draped in sterile fashion the??{left upper extremity} was? exsanguinated with Esmarch bandage and tourniquet inflated to 250mmHg I proceeded with making a longitudinal incision over the left 1st extensor compartment through skin and dermis with 15 blade scalpel. Littler scissors were used to spread through subcutaneous tissue down to the extensor retinaculum. The dorsal branch of the radial sensory nerve was identified and protected throughout the procedure with it being retracted dorsally. I made a longitudinal incision on the dorsum of the 1st extensor compartment with 15 blade scalpel. Littler scissors were used to spread above and below it proximally and distally completing the transection entirely and noted there was separate sheath for both APL and APB and both of which compeltely released. Ragnell retractor was used to withdraw the APL and EPB tendons for inspection. The tendons were free of masses and synovitis and glided smoothly in the sheath. I irrigated with normal saline. Closure was done with 4-0 Monocryl for dermis and subcuticular. A dressing of Dermabond, 4x4, kanwal, and an shagufta bandage was applied after the tourniquet was let down noting the hand was warm and well perfused. The patient was then awaken from anesthesia and transferred to the recovery room in stable condition.? Complications - none EBL- 0cc Disposition - home in stable condition Edin Escamilla PA-C was essential for positioning, retraction, closure and dressing placement [facility] Billing Surgery - Charge Forward: Surgery Billing (-AS for edin)
[2025-01-08 09:18] VITALS: BP 141/72; PULSE 71; RESP 18; TEMP 37; O2SAT 97
--- OUTSIDE RECORDS SUMMARY | 2025-01-08 09:21 | XMS_ITS | Clinical Summary ---
Author Organization [facility] [place], [place] [address] Address [address] [place] [address] Care Team Providers Care Insurance Healthcare Consultant Name Role Phone Willam Lopes MD Primary Care Provider [phone] Social History Tobacco Use Types Packs/Day Years Used Date Smoking Tobacco: Never Assessed Personal Safety Answer Date Recorded Getting School Help Needed Not on file 06/23 Sex and Gender Information Value Date Recorded Sex Assigned at Not on file Legal Sex Male 5:47 PM [employer] Gender Identity Not on file Sexual Orientation Not on file Plan of Treatment Not on file Insurance [facility] HMO/POS Care Teams Insurance Healthcare Consultant Relationship Specialty Start Date End Date Willam Lopes MD [address] [facility] [address] [place] [address] PCP - General Internal Medicine 05/15/18
[2025-01-08] MEDS: LACTATED RINGERS 1,000 ML 30 ML IV CONT (09:31)
[2025-01-08] MEDS: ACETAMINOPHEN 500 MG TABLET 1000 MG PO (09:31)
[2025-01-08 09:37] VITALS: BMI 36.3
[2025-01-08] MEDS: ceFAZolin SODIUM 2 GM/20 ML SW SYRINGE IV PUSH (10:06)
--- NOTE | 2025-01-08 10:11 | WPDANESEPPF ---
Anes - Initial Pre Proc Eval Procedure: Operation Date: 01/08/25 10:30 Proposed Procedures p Left First Extensor Compartment Release - Sherman Jordan MD Date/Time: 01/08/25 10:11 Surgeon: Sherman Jordan MD Pre Op Diagnosis: James Patient Data Age: 69 Gender: M Height: 1.78 m Weight: 115.05 kg Last Vital Signs Temp 98.6 F 01/08/25 09:18 Pulse 71 01/08/25 09:18 Resp 18 01/08/25 09:18 BP 141/72 H 01/08/25 09:18 Pulse Ox 97 01/08/25 09:18 O2 Del Method Room Air 01/08/25 09:18 Allergies Allergy/AdvReac Type Severity Reaction Status Date / Time Sulfa (Sulfonamide AdvReac Mild Nausea Verified 01/08/25 09:12 Antibiotics) magnesium AdvReac Gastrointestinal Verified 01/08/25 09:12 Upset Home Medications ?Medication ?Instructions ?Recorded ?Confirmed ?Type fluticasone propionate 50 2 spray intranasal PRN PRN Allergy 02/26/19 01/08/25 History mcg/actuation nasal Symptoms spray,suspension (Flonase Allergy Relief) lactobacillus combination no.9 4 4,000 mmu cells PO DAILY 02/26/19 01/08/25 History billion cell capsule (Adult 50 Plus Probiotic) psyllium husk 0.4 gram capsule 0.4 gm PO DAILY 02/26/19 01/08/25 History (Fiber (psyllium husk)) loratadine 10 mg tablet (Claritin) 10 mg PO DAILY 01/25/21 01/08/25 History acetaminophen [Tylenol Arthritis 2 tab-cap PO PRN PRN Pain 06/16/22 01/08/25 History Pain] calcium carbonate [Tums] 1 tab-cap PO PRN PRN Heartburn 06/16/22 01/08/25 History azelastine 205.5 mcg (0.15 %) 2 spray intranasal PRN PRN Allergy 02/20/23 01/08/25 History nasal spray Symptoms cyclobenzaprine 10 mg tablet 10 mg PO QHS PRN muscle spasm #30 03/14/23 12/30/24 Rx tabs hydrocortisone 2.5 % topical cream 1 applic RECTAL BID PRN 12/12/23 01/08/25 Rx with perineal applicator hemorrhoids #30 grams (Proctozone-HC) budesonide-formoterol HFA 80 2 puff inhalation BID PRN 12/24/23 01/08/25 Rx mcg-4.5 mcg/actuation aerosol Shortness Of Breath #10.2 grams inhaler (Symbicort) dexlansoprazole 60 mg 60 mg PO DAILY #90 caps 02/26/24 01/08/25 Rx capsule,biphase delayed release (Dexilant) Potassium 99 mg PO .QOD 05/12/24 12/30/24 History naproxen sodium 550 mg tablet 550 mg PO Q12H PRN pain #60 tabs 05/21/24 01/08/25 Rx (Anaprox DS) duloxetine 30 mg capsule,delayed 30 mg PO DAILY #90 caps 08/27/24 01/08/25 Rx release nystatin 100,000 unit/gram topical 1 applic topical BID #30 grams 10/09/24 01/08/25 Rx cream aspirin 81 mg tablet,delayed 81 mg PO DAILY 12/30/24 01/08/25 History release (Adult Low Dose Aspirin) hydrocodone 5 mg-acetaminophen 325 1 tablet PO Q6H PRN pain #8 tabs 01/08/25 Rx mg tablet Patient hx anesthesia problems: none Family hx anesthesia problems: none Results Review: All pre-operative results and documents have been reviewed as part of the pre-operative evaluation. [facility] Past Medical History Medical History (Updated 11/17/24 @ 10:55 by Ning Dougherty) Other fatigue Cough Shoulder mass Tinnitus Posterior tibial tendinitis of left lower extremity Palpitations Other rosacea Localized swelling, mass and lump, left upper limb (05/04/16) Left foot pain Irregular heartbeat Internal and external bleeding hemorrhoids Insomnia Hyperglycemia Hemorrhoids Hallux valgus (acquired), left foot Flu-like symptoms Flat foot [pes planus] (acquired), left foot Family history of deep venous thrombosis Epidermal inclusion cyst Encounter for screening for malignant neoplasm of prostate Encounter for general adult medical examination without abnormal findings Encounter for surgical aftercare following surgery on the skin and subcutaneous tissue Dietary counseling and surveillance (03/01/16) BPPV (benign paroxysmal positional vertigo) Body mass index [BMI] 35.0-35.9, adult (11/28/16) Allergic rhinitis, unspecified Acute non-recurrent sinusitis Acute left ankle pain Acute deep vein thrombosis (DVT) of popliteal vein of left lower extremity Acquired leg length discrepancy Pes planovalgus, acquired Arthritis of foot, 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 Other fatigue Degenerative joint disease of right hip Arthritis Anxiety GERD (gastroesophageal reflux disease) Hypertension Wears glasses Essential (primary) hypertension Hx of deep venous thrombosis Other hyperlipidemia Surgical History Surgical History History of tonsillectomy History of tympanoplasty of left ear History of bunionectomy Family History Family History Father Family history of lung cancer Family history of congestive heart failure Patient's father is Mother Family history of diabetes mellitus in first degree relative Diabetes mellitus Family history of cardiovascular disease Family history of Alzheimer's disease Sibling Family history of diabetes mellitus in first degree relative Family history of atrial fibrillation Other Family history of arthritis Family history of malignant neoplasm Hypertension Social History Social History Smoking status: Never smoker Second hand tobacco smoke exposure: No Additional smoking assessment comments: DENIES ANY FORM OF TOBACCO USE Alcohol intake: current Drinks per week: 3 Substance use type: does not use Lack of Transportation: No Lack of Food: Never True Current Housing: I Have Housing Concerned About Future Housing: No Difficulty Paying Gas/Electric Bills: No Difficulty Paying for Meds: No Currently Unemployed: No Education: Bachelor's Degree Difficulty w/ Childcare or Family Care: No Living arrangements: with family Gender identity (if verbalized by the patient): Male Spiritual care concerns: No Anes - Eval Final PreProcedure Day of Procedure 01/08/25 10:11 Heart: other Lungs: clear to auscultation Airway: Mallampati scale class IV Neurological: alert and oriented Last oral intake: >/= 8 hours ASA classification: II Anesthetic plan: proceed Anesthesia type and monitoring: monitored anesthesia care Results Review: All pre-operative results and documents have been reviewed as part of the pre-operative evaluation. Informed Consent: The patient's anesthetic plan and its attendant risks and benefits were discussed with the patient/family/POA. Questions were solicited and answers provided to the satisfaction of the patient/family/POA.
[2025-01-08] MEDS: LIDO 1%/EPINEPHRINE 1:100,000 20 ML VIAL 10 ML INFILTRATE (10:20)
[2025-01-08] MEDS: BUPivacaine HCL 0.5% 10 ML AMP INFILTRATE (10:21)
--- NOTE | 2025-01-08 10:21 | WPDANESPN ---
Anes - Prog Note Post-Op Date/Time: 01/08/25 10:21 Vital Signs: Last Vital Signs Temp 98.6 F 01/08/25 09:18 Pulse 71 01/08/25 09:18 Resp 18 01/08/25 09:18 BP 141/72 H 01/08/25 09:18 Pulse Ox 97 01/08/25 09:18 O2 Del Method Room Air 01/08/25 09:18 Pain Score (VAS): no Patient Feedback: Patient satisfied with anesthetic care.
[2025-01-08 10:24] VITALS: BP 147/76; PULSE 70; RESP 16; O2SAT 96
[2025-01-08 10:50] VITALS: BP 131/62; PULSE 64; RESP 16; O2SAT 96
== END 2025-01-08 11:05 | disposition home or self-care (01) ==
LOC: ASC 09:02
PROVIDERS: PCP Internal Medicine; Visit Provider Plastic Surgery
PROC: (CPT 25000; principal; 2025-01-08 10:30)
DX: M65.4 Radial styloid tenosynovitis [de Quervain] (principal)
CPT/HCPCS: 25000